=== PATIENT | female | born 1970 | race Two or more races ===

== ENCOUNTER 2020-11-16 20:17 | Emergency (ER) | payer MEDICARE, MEDICAID, SELFPAY ==
[2020-11-16 20:28] VITALS: BP 142/98; PULSE 155; RESP 16; TEMP 36.9; O2SAT 97; BMI 36.6
--- NOTE | 2020-11-16 20:36 | PC.NURSE ---
PT TO ED VIA AMBULANCE AFTER BEING FOUND IN RESTROOM BY EMS. VS OBTAINED. PT A&OX3, SKIN W/D. RESPIRATIONS N/L. 97% ON RA. SECURITY AT BEDSIDE FOR SEARCH. PT DENIES ANY COMPLAINTS. PT DENIES S/H.
--- NOTE | 2020-11-16 21:08 | PC.NURSE ---
PT RESTING QUIETLY, CALM AND COOPERATIVE. PT REMAINS ALERT, RESPIRATIONS EASY, N/L. SKIN W/D. WILL CONTINUE TO MONITOR PT.
--- NOTE | 2020-11-16 21:24 | ED_ITS ---
HPI - Alcohol General Chief Complaint: ETOH/Substance Use Stated Complaint: od Source: patient and EMS Mode of arrival: EMS Limitations: no limitations History of Present Illness HPI narrative: 50-year-old female presents via EMS for overdose. She was found in the restroom unresponsive, given 12 mg of Narcan. Patient does state to have opioid and cocaine use earlier today. She does not report any chest pain or pressure, palpitations, shortness breath, abdominal pain, abdominal distention, dysuria, hematuria, fevers or chills. She denies suicidal and homicidal ideation, and states this was an accidental event. Last drink: Hours (ago) (Within the hour of arrival) Associated symptoms: denies other symptoms Treatments prior to arrival: other (Narcan) Related Data Allergies Allergy/AdvReac Type Severity Reaction Status Date / Time No Known Allergies Allergy Verified 11/16/20 22:36 Review of Systems Review of Systems: Constitutional: No Fever, No Chills positive cocaine and opioid abuse ENT/Mouth: No sore throat, No Rhinorrhea Eyes: No Eye Pain, No Swelling, No Redness Cardiovascular: No Chest Pain, No SOB Respiratory: No Cough, No Sputum Gastrointestinal: No Nausea, No Vomiting, No Diarrhea, No abdominal Pain Genitourinary: No Dysuria, No Hematuria Musculoskeletal: No joint pain, No Myalgias, No Joint Swelling Skin: No Skin Lesions, No rash Neuro: No Weakness, No Numbness, No Loss of Consciousness, No Dizziness, No Headache Psych: No Anxiety, No Depression, No SI/HI/AH/VH Heme/Lymph: No Bruising, No Bleeding,No Lymphadenopathy Endocrine: No Polyuria, No Polydipsia [facility] Past Medical History Attestation statement: The following information was validated with the patient. Source: old records reviewed Social History Social History Advance Directives: No Physical Exam Vital Signs: Vital Signs: Last Vital Signs Temp 98.4 F 11/16/20 20:28 Pulse 155 H 11/16/20 20:28 Resp 16 11/16/20 20:28 BP 142/98 H 11/16/20 20:28 Pulse Ox 97 11/16/20 20:28 Body Mass Index 36.6 Appearance: Alert. Oriented X3. No acute distress. Eyes: Pupils equal, round and reactive to light. ENT: Pharynx normal. Neck: Normal inspection. Neck supple. CVS: Normal heart rate and rhythm. Pulses normal. Respiratory: No respiratory distress. Breath sounds normal. Abdomen: Soft and nontender. Skin: Skin warm and dry. Normal skin color. Normal skin turgor. Extremities: No lower extremity edema. Neuro: No motor deficit. No sensory deficit. Course Course Course Narrative: 50-year-old female presents via EMS for overdose. Was given 12 mg of intranasal Narcan, is alert and oriented at this time. Answering questions politely and appropriately. States to be very embarrassed about what happens, is forthcoming with information about using opioids and cocaine on a daily basis. She is not interested in detox at this time. Vital signs on arrival show heart rate of 155, during my assessment heart rate was 87 regular rhythm, 16 respirations per minute even unlabored, no adventitious lung sounds or tracheal stridor. Patient maintaining secretions and able to follow directions. Plan of care is to watch for 2 hours. Patient maintains O2 sat at 100%, heart rate 82, vital signs taken by this [employer]. Plan of care is to discharge home with intranasal Narcan. Patient asked a 2nd time if she was interested in detox and she politely declined. MDM - Alcohol MDM Narrative Medical decision making narrative: Overdose, opioid dependence, cocaine dependence Medical Records Attestation: I reviewed the patient's medical records. Discharge Plan Discharge Clinical Impression: Opioid abuse Patient Disposition: Home, Self-Care Instructions: Adult Overdose (ED), Opioid Use Disorder (ED) Additional Instructions: You were evaluated for suspected overdose. You needed 12 mg of Narcan to be revived. Please consider detox. Thank you for choosing this emergency department for evaluation. Please follow-up with primary care physician as needed. Return to the emergency department for any new, concerning, or worsening symptoms. Interventions: ED Discharge Assessment Last Done: 11/16/20 22:54 Discharge Date/Time: 11/16/20 23:05
== END 2020-11-16 23:05 | disposition home or self-care (01) ==
PROVIDERS: Emergency Provider Internal Medicine
DX: T40.1X1A Poisoning by heroin, accidental (unintentional), initial encounter (principal); F11.20 Opioid dependence, uncomplicated; F14.20 Cocaine dependence, uncomplicated; Y92.9 Unspecified place or not applicable; Z71.51 Drug abuse counseling and surveillance of drug abuser
CPT/HCPCS: 99283

== ENCOUNTER 2023-02-15 09:58 | Outpatient (REF) | payer OTHER, SELFPAY ==
[2023-02-15 11:52] LABS: Cholesterol 183 mg/dL; Glucose Fasting 84 mg/dL (60-99); HDL Cholesterol 53 mg/dL; LDL Cholesterol Calculated 118 mg/dl; Triglycerides 63 mg/dL
== END 2023-02-15 09:59 | disposition home or self-care (01) ==
LOC: HO.HMGCLDS 09:58
PROVIDERS: Visit Provider Psychiatry & Neurology Psychiatry
DX: Z79.899 Other long term (current) drug therapy (principal)
CPT/HCPCS: 36415; 80061; 82947